=== PATIENT | male | born 1975 | race African-American/Black ===

== ENCOUNTER 2017-08-09 19:42 | Emergency (ER) | payer SELFPAY ==
[~2017-08-09] VITALS: Ht 188 cm; Wt 182.7 kg
[2017-08-09 19:49] VITALS: BP 166/92
[2017-08-09] MEDS ORDERED: ACETAMINOPHEN 325MG TABLET PO ONE (20:00)
[2017-08-09] MEDS ORDERED: ACETAMINOPHEN 500MG TABLET PO ONE (20:00)
== END 2017-08-10 00:05 | disposition left against medical advice (07) ==
LOC: ER 19:42
DX: J11.1 Influenza due to unidentified influenza virus with other respiratory manifestations (principal); R50.9 Fever, unspecified
CPT/HCPCS: 99282